=== PATIENT | female | born 1975 | race Caucasian/White ===

== ENCOUNTER 2016-09-25 08:54 | Observation (INO) | payer OTHER ==
[2016-09-25] MEDS ORDERED: LIDOCAINE 100 MG PFS IV ONE (08:58)
[2016-09-25] MEDS ORDERED: ONDANSETRON HCL 4 MG/2 ML VIAL IV ONE (08:58)
[2016-09-25] MEDS ORDERED: FENTANYL 250 MCG/5 ML VIAL IV ONE (08:58)
[2016-09-25] MEDS ORDERED: SUCCINYLCHOLINE 20 MG/1 ML INJ 10 ML MDV IV ONE (08:58)
[2016-09-25] MEDS ORDERED: ROCURONIUM 50 MG/5 ML VIAL IV ONE (08:58)
[2016-09-25] MEDS ORDERED: NEOSTIGMINE 1 MG/1 ML (1:1000) INJ 10 ML MDV IM ONE (08:58)
[2016-09-25] MEDS ORDERED: METOCLOPRAMIDE 10 MG/2 ML VIAL IV ONE (08:58)
[2016-09-25] MEDS ORDERED: MIDAZOLAM 2 MG/2 ML VIAL IV ONE (08:58)
[2016-09-25] MEDS ORDERED: GLYCOPYRROLATE 1 MG VIAL IM ONE (08:58)
[2016-09-25] MEDS ORDERED: PHENYLEPHRINE 10 MG/ML VIAL IC ONE (08:58)
[2016-09-25] MEDS ORDERED: DEXAMETHASONE 4 MG/ML VIAL IV ONE (08:58)
[2016-09-25] MEDS ORDERED: PROPOFOL 200 MG/20 ML VIAL IV ONE (08:58)
[2016-09-25] MEDS ORDERED: KETOROLAC TROMETH 30 MG/ML VIAL IM ONE (08:58)
[2016-09-25 09:27] LABS: MPV 7.9 fL (7.4-10.4)
[2016-09-25] MEDS ORDERED: hydrALAZINE 20 MG/ML VIAL IV PRN (09:37)
[2016-09-25] MEDS ORDERED: PROMETHAZINE 25 MG/ML VIAL IV PRN ×2 (09:37)
[2016-09-25] MEDS ORDERED: CEFAZOLIN 1 GM VIAL ONE (09:37)
[2016-09-25] MEDS ORDERED: ONDANSETRON HCL 4 MG ODT TAB PO PRN (09:37)
[2016-09-25] MEDS ORDERED: MEPERIDINE 25 MG/ML TUBEX IV PRN (09:37)
[2016-09-25] MEDS ORDERED: LABETALOL 20 MG/4 ML SYRINGE IV PRN (09:37)
[2016-09-25] MEDS ORDERED: ONDANSETRON HCL 4 MG/2 ML VIAL IV PRN ×2 (09:37→12:30)
[2016-09-25] MEDS ORDERED: FENTANYL 100 MCG/2 ML VIAL IV PRN (09:37)
--- NOTE | 2016-09-25 09:38 | SC.ANESPOS ---
Post-Anesthesia Note LOC: [place] [facility] Calling Post-Anesthesia Assessment: Awake, Returned to Baseline, Hemodynamically Stable , Pain Control Adequate Phase I & II Recovery Complete: Yes Apparent Anesthesia Complication: No : N PACU Discharge Time: 14:20 - Vital Signs Blood Pressure: 112/67 Pulse: 72 Resp Rate: 16 O2 Sat: 98 Temp: 98.2 F - Comments Anesthesia Discharge Time Report Time 14:20
[2016-09-25 10:01] LABS: LEUKOCYTES/URINE NEG (NEGATIVE); NITRITE/URINE NEG (NEGATIVE); URINE OCCULT BLOOD NEG (NEG/TRACE)
[2016-09-25 10:10] LABS: RBC/URINE 0-2 (0-5)
--- NOTE | 2016-09-25 10:16 | HIM.ANES ---
Anesthesia Evaluation & Plan Diagnoses: INTRAMURAL LEIOMYOMA OF UTERUS (09/25/16) ENDOMETRIOSIS, UNSPECIFIED (09/25/16) Consented Procedure: TOTAL LAPAROSCOPIC HYSTERECTOMY, RIGHT SALPINGO- OOPHORECTOMY,POSSIBLE TOTAL ABDOMINAL HYSTERECTOMY/RIGHT SALPINGO-OOPHORECTOMY, AND POSSIBLE CYSTOSCOPY - Focused Review of Systems Cardiac History: No: Hx Cardiac Disorders HEENT: Yes: Hx Vision Problem (READING GLASSES), Other HEENT Problems Hx Other HEENT Surgery: LASIK EYE SX Gastrointestinal: Yes: Hx Gastroesophageal Reflux Disease (OCCASIONAL/Controlled ), Hx Gastrointestinal Disorders Neurological/Musculoskeletal: No: Hx Neurological Disorders Psychological: Yes Hx Anxiety, Yes Hx Mental/Emotional Disorders Endocrine: Yes: Hx Hypothyroidism Blood/Autoimmune: Yes: Hx Anemia No: Hx Blood Transfusions, Hx AIDS, Hx Hepatitis (type) Smoking Status: Never smoker Surgical History: Yes: Cholecystectomy (2002) Other Surgical History: LASIK EYE SX - Focused Physical Exam NPO since: 09/24/16 2100 Mallampati: Class III Thyromental Distance: Greater than 3 Neck: Full Range of Motion Dental: Normal - no significant findings Cardiovascular/Chest: Normal Respiratory: Lungs clear Any problems with anesthesia, including nausea and vomiting?: No Any relatives with a history of Malignant Hyperthermia?: No Beta Mirza given (if appropriate): N/A Does the patient have a history of Motion Sickness-: Yes Other: PT/PTT/INR/ Urine Test Neg (NEGATIVE) 09/25/16 09:20 CBC/BMP/Other 09/25/16 09:16 Allergies Allergy/AdvReac Type Severity Reaction Status Date / Time acetaminophen [From Percocet] Allergy Itching Verified 09/25/16 09:42 morphine Allergy Hives* Verified 09/23/16 17:21 oxycodone [From Percocet] Allergy Itching Verified 09/25/16 09:42 Home Medications Medication Instructions Recorded Last Taken Type Alprazolam [Xanax] 0.5 mg PO Q6H PRN 09/23/16 09/10/16 History Levothyroxine [Synthroid, Levoxyl] 125 mcg PO DAILY 09/23/16 09/23/16 08:00 History Multivitamin [Multivitamins] 1 each PO DAILY 09/23/16 09/23/16 08:00 History Ibuprofen 800 mg PO Q8H PRN 09/25/16 09/23/16 History Height and Weight Patient's height 5 ft 7 in Patient's weight 205 lb Vital Signs Temperature 97.8 F 09/25/16 09:48 Pulse Rate 85 09/25/16 09:48 Respiratory Rate 18 09/25/16 09:48 Blood Pressure 123/58 L 09/25/16 09:48 Pulse Oxygen Saturation 100 09/25/16 09:48 - Anesthetic Plan Anesthesia Type: General ASA Class: 2 -: I have examined this patient and reviewed the medical record. The patient has been assessed prior to anesthesia. Risks and benefits of anesthesia and anesthetic technique options have been discussed and all questions answered. The patient accepts the risk and desires me to proceed with the planned anesthetic.
[2016-09-25] MEDS ORDERED: BUPIVACAINE 0.25% 30 ML VIAL ONE (10:41)
--- NOTE | 2016-09-25 12:34 | HIMOPRPT ---
DATE OF PROCEDURE: DATE OF PROCEDURE: 09/25/16 PREOPERATIVE DIAGNOSIS: Symptomatic uterine fibroids. Menorrhagia, Dysmenorrhea , Endometriosis POSTOPERATIVE DIAGNOSIS: Same PROCEDURE: TLH, RSO, cystoscopy SURGEON: Sydney Owen MD. [employer] INSTRUMENT REPAIRER: [Mateo]. ANESTHESIA: General Endotrachial Intubation. COMPLICATIONS: None. ESTIMATED BLOOD LOSS: 25 mL. FINDINGS: Large pedunculated fibroid, normal right ovary and tube. PROCEDURE IN DETAIL: The patient was taken to the operating room where she was prepped and draped in usual sterile fashion after general anesthesia was induced. The patient had been placed in [facility] stirrups. A Velazquez catheter was placed. Attention was turned the abdomen where a 0.25% Marcaine was injected at the infraumbilical incision site. At this time, a trocar was inserted using the laparoscope. Attention was turned to the pelvis and the above -noted findings were seen. Next in usual fashion using Marcaine prior to the incisions a trocar was placed in the left and right lower quadrant under direct visualization without any difficulty. Next using the Harmonic scalpel. The utero -ovarian ligaments were transected on the left and the infundibulopelvic ligament on the right and transection was carried down to the uterine arteries. The uterine arteries were skeletonized and transected. The bladder flap was created. A sponge stick was placed in the vagina and a colpotomy performed on top of the sponge stick in the usual fashion without difficulty. In similar fashion, a posterior colpotomy was performed. Next the cardinal and uterosacral ligaments were transected using the Harmonic scalpel and the specimen was removed through the vagina. The vaginal incision was then closed laparoscopically using 0 Vicryl suture without difficulty. The pelvis was irrigated with saline and hemostasis found to be adequate. Cystoscopy was performed showing normal bladder mucosa and spillage of urine from the ostia bilaterally. The pneumoperitoneum was released. The ports removed. The incisions were closed with a 4-0 Monocryl in subcuticular fashion. Dermabond was applied the the skin sites. Sponge laps and needle counts were correct x2. The patient tolerated well.
[2016-09-25] MEDS ORDERED: FENTANYL 100 MCG/2 ML VIAL ONE ×2 (12:56→13:30)
[2016-09-25] MEDS ORDERED: LR 1,000 ML IV SCH (13:00)
[2016-09-25] MEDS: FENTANYL 100 MCG/2 ML VIAL IV PRN ×4 (13:00→14:05)
--- NOTE | 2016-09-25 15:13 | OBGYNPROG ---
- Subjective Hospital Day #: 1 Post Op Day: 0 Denies: Complaints, Abdominal Cramping, Gas Pains, Nausea Pain: Reports: Well Managed, Abdominal - Objective Vital Signs: Temperature: 98.2 F (09/25/16 14:20) HR: 72 (09/25/16 14:57) RR: 16 (09/25/16 14:57) BP: 112/67 (09/25/16 14:57) Pulse Ox: 98 (09/25/16 14:42) GENERAL: Alert, Oriented, No Acute Distress ABDOMEN: Soft INCISION: Incision Clean/Dry/Intact MUSCULOSKELETAL: Normal EXTERMITIES: Moves All Extremeties. negative: Edema OBGYN Progress Note - PLAN Routine Post Op Care
[2016-09-25] MEDS: IBUPROFEN 800 MG TAB PO PRN ×2 (15:36→22:20)
[2016-09-25] MEDS ORDERED: Vaccine Screening Complete SCH (16:00)
[2016-09-25] MEDS ORDERED: OXYCODONE HCL 5 MG TABLET ONE (17:38)
[2016-09-25] MEDS: OXYCODONE HCL 5 MG TABLET PO PRN (17:41)
[2016-09-25] MEDS ORDERED: SODIUM CHLORIDE 0.9% 3 ML FLUSH FLUSH PRN ×2 (17:47→17:48)
[2016-09-25] MEDS ORDERED: SODIUM CHLORIDE 0.9% 3 ML FLUSH FLUSH SCH ×2 (18:00)
[2016-09-26] MEDS: OXYCODONE HCL 5 MG TABLET PO PRN (05:39)
[2016-09-26] MEDS: IBUPROFEN 800 MG TAB PO PRN (05:40)
[2016-09-26 06:29] VITALS: BP 100/57; PULSE 64; TEMP 98.4
[2016-09-26 06:34] LABS: AUTOMATED BASOPHIL 0.6 % (0-2); AUTOMATED EOSINOPHIL 0.4 % (0-5); AUTOMATED LYMPH 24.1 % (17-44); AUTOMATED MONOCYTE 10.6 % (3-10); AUTOMATED NEUTROPHIL 64.3 % (45-76); MPV 8.8 fL (7.4-10.4)
--- NOTE | 2016-09-26 07:59 | PCM.DCS92 ---
- Primary/Secondary Discharge Diagnoses (1) Fibroids Acute D25.9 - LEIOMYOMA OF UTERUS, UNSPECIFIED (2) Menorrhagia Acute N92.0 - EXCESSIVE AND FREQUENT MENSTRUATION WITH REGULAR CYCLE (3) Endometriosis Acute N80.9 - ENDOMETRIOSIS, UNSPECIFIED - HOSPITAL COURSE Admitted to hospital, underwent tlh, rso without difficulty. Voided last pm, and vitals stable today /Op Complications: None - DISCHARGE INSTRUCTIONS Discharge Disposition: Home Discharge Condition: Good Cognitive Discharge Status: Unimpaired Fuctional Discharge Status: Independent Patient Leaving with Prescriptions?: Yes Prescriptions: Ibuprofen Tablet [Motrin] 800 mg PO TID #30 tab Oxycodone Immediate Release [Oxycodone Immediate Release Tablet] 5 mg PO Q4H PRN #30 tab PRN Reason: Pain Referrals: Sydney Owen MD [Staff Physician] - Two Weeks - Diet Diet at Discharge: As Tolerated - Activity Activity: Limited, No Heavy Lifting, Pelvic Rest No Driving for: While using pain medications - Instructions Call Physician for: Sudden/Sever Chest Pain, Foul Smelling Discharge, Pain/ Redness in Calf/Leg, Temperature Above 100.4, Vaginal Bleeding - Incision Incision, Lacerations, or Tears: Yes Dressing/Site Care (if applicable): keep clean and dry, wash in shower as usual - DC Summary Notes Discharge Medications: *See "Discharge Medication List" for a complete list of Home Medications and Discharge Medications.* Obstetric Hospital Course - Admitting Diagnosis Admission Date: 09/25/16 Admission time: 14:29
--- NOTE | 2016-09-26 08:00 | OBGYNPROG ---
- Subjective Hospital Day #: 2 Post Op Day: 1 Reports: Tolerating Regular Diet. Denies: Complaints, Abdominal Cramping, Gas Pains, Nausea Pain: Reports: Well Managed, Incision - Objective Vital Signs: Temperature: 98.4 F (09/26/16 06:28) HR: 64 (09/26/16 06:28) RR: 18 (09/26/16 06:28) BP: 100/57 (09/26/16 06:28) Pulse Ox: 98 (09/25/16 15:20) Laboratory Results - last 24 hr 09/25/16 09/25/16 09/25/16 09:16 09:16 09:20 WBC 5.5 RBC 4.39 Hgb 11.5 L Hct 35.2 L MCV 80 L MCH 26.2 L MCHC 32.7 L RDW 15.5 H Plt Count 300 MPV 7.9 Neut % (Auto) Lymph % (Auto) Ada % (Auto) Eos % (Auto) Baso % (Auto) Absolute Neuts (auto) Absolute Lymphs (auto) Urine Color Urine Clarity Urine pH Ur Specific [place] Urine Protein Urine Glucose (UA) Urine Ketones Urine Occult Blood Urine Nitrite Urine Bilirubin Urine Urobilinogen Ur Leukocyte Esterase Urine RBC Ur Epithelial Cells Urine Bacteria Urine Mucus Urine Test Neg Blood Type A POSITIVE Antibody Screen Negative 09/25/16 09/26/16 09:35 05:55 WBC 8.0 RBC 3.94 L Hgb 10.4 L Hct 31.6 L MCV 80 L MCH 26.4 L MCHC 32.9 L RDW 15.7 H Plt Count 254 MPV 8.8 Neut % (Auto) 64.3 Lymph % (Auto) 24.1 Ada % (Auto) 10.6 H Eos % (Auto) 0.4 Baso % (Auto) 0.6 Absolute Neuts (auto) 5.12 Absolute Lymphs (auto) 1.92 Urine Color Yellow Urine Clarity Clear Urine pH 8.0 Ur Specific [place] 1.005 Urine Protein Neg Urine Glucose (UA) Neg Urine Ketones Neg Urine Occult Blood Neg Urine Nitrite Neg Urine Bilirubin Neg Urine Urobilinogen <2.0 Ur Leukocyte Esterase Neg Urine RBC 0-2 Ur Epithelial Cells 1+ Urine Bacteria Few Urine Mucus Occ Urine Test Blood Type Antibody Screen GENERAL: Alert, Oriented, No Acute Distress HEENT: Normal CARDIOVASCULAR/CHEST: Normal RESPIRATORY: Normal - CTA ABDOMEN: Soft INCISION: Incision Clean/Dry/Intact MUSCULOSKELETAL: Normal EXTERMITIES: Moves All Extremeties. negative: Edema OBGYN Progress Note - ASSESSMENT (1) Fibroids Status: Acute Code(s): D25.9 - LEIOMYOMA OF UTERUS, UNSPECIFIED (2) Menorrhagia Status: Acute Code(s): N92.0 - EXCESSIVE AND FREQUENT MENSTRUATION WITH REGULAR CYCLE (3) Endometriosis Status: Acute Code(s): N80.9 - ENDOMETRIOSIS, UNSPECIFIED - PLAN Routine Post Op Care, Discharge
== END 2016-09-26 08:59 | disposition home or self-care (01) ==
LOC: SDC 08:54 → MASU 14:31
PROVIDERS: ADMIT Obstetrics & Gynecology; ATTEND Obstetrics & Gynecology
PROC: 0UTC4ZZ Resection of Cervix, Percutaneous Endoscopic Approach (ICD-10-PCS; 2016-09-25)
PROC: 0UT24ZZ Resection of Bilateral Ovaries, Percutaneous Endoscopic Approach (ICD-10-PCS; 2016-09-25)
PROC: 0UT74ZZ Resection of Bilateral Fallopian Tubes, Percutaneous Endoscopic Approach (ICD-10-PCS; 2016-09-25)
PROC: 0UT94ZZ Resection of Uterus, Percutaneous Endoscopic Approach (ICD-10-PCS; principal; 2016-09-25 10:25)
DX: D25.1 Intramural leiomyoma of uterus (principal); E66.9 Obesity, unspecified; Z79.899 Other long term (current) drug therapy; N94.6 Dysmenorrhea, unspecified; N92.0 Excessive and frequent menstruation with regular cycle; N84.0 Polyp of corpus uteri; D25.2 Subserosal leiomyoma of uterus; N80.0 Endometriosis of uterus
CPT/HCPCS: 58571; 81001; 81025; 85025; 85027; 86850; 86900; 86901; 87086; 96360; 96361; J0330; J0690; J1100; J1885; J2001; J2250; J2370; J2405; J2710; J2765; J3010; J3490; S0020